=== PATIENT | male | born 1955 | race Caucasian/White ===

== ENCOUNTER 2025-05-07 10:43 | Outpatient (CLI) | payer OTHER ==
[~2025-05-07 10:43] MED LIST: ATOR20TA66 PO; CITA40TA30 PO; DULO60CA65 PO; FLUT16SP26 BOTHNARES; GABA300T28 PO; IBUP-1986 PO; LOSA50TA64 PO; MELO-102 PO; METF-437 PO; OMEP20CA16 PO; TRAZ-251 PO
--- NOTE | 2025-05-07 13:47 | RADIOLOGY REPORT ---
DI CHEST,TWO VIEWS CLINICAL HISTORY: CURRECT SMOKER 1 PACK A DAY COMPARISON: DI CHEST,SINGLE VIEW on DOS: 12/20/24 TECHNIQUE: Frontal and lateral view of the chest was obtained FINDINGS: Lines and Tubes: None Lungs: No focal consolidation. Pleura: No effusion. No pneumothorax. Cardiomediastinal contours: Unremarkable Bones: No acute osseous abnormality. IMPRESSION: No acute cardiopulmonary disease.
== END 2025-05-07 23:59 | disposition home or self-care (01) ==
LOC: RAD 10:43
PROVIDERS: ATTEND Physician Assistant
DX: J44.89 Other specified chronic obstructive pulmonary disease (principal); F17.210 Nicotine dependence, cigarettes, uncomplicated
CPT/HCPCS: 71046